=== PATIENT | male | born 1990 | race Caucasian/White ===

== ENCOUNTER → 2016-12-11 | Outpatient (CLI) | payer BC ==
[~2016-12-11] MED LIST: CEPH-583 PO; OXYC1TAB8 PO; [UNRECOGNIZED DRUG - CODE] TOP
[2016-12-11 17:12] LABS: BASOPHILS % (AUTO) 0.3 % (0-2); EOSINOPHILS # (AUTO) 0.1 T/MM3 (0-0.5); EOSINOPHILS % (AUTO) 2.1 % (0-4); HCT - HEMATOCRIT 44.3 % (41-53); HGB - HEMOGLOBIN 15.8 GM/DL (13.5-17.5); IMMATURE GRANULOCYTE # (AUTO) 0.02 T/MM3 (0.00-0.03); IMMATURE GRANULOCYTE % (AUTO) 0.3 % (0.0-0.5); LYMPHOCYTES % (AUTO) 32.2 % (23-45); MEAN CORPUSCULAR HGB CONC(MCHC 35.7 GM/DL (31-37); MEAN PLATELET VOLUME 10.2 UM3 (9.4-12.4); MONOCYTES # (AUTO) 0.4 T/MM3 (0-0.8); NEUTROPHILS #(AUTO)-ABSOLUTE 3.7 T/MM3 (1.8-7.7); NEUTROPHILS % (AUTO) 58.1 % (33-66); RED BLOOD COUNT 5.09 M/MM3 (4.50-5.90); WBC - WHITE BLOOD COUNT 6.3 T/MM3 (4.5-11.0)
== END ==
LOC: LAB 16:36
PROVIDERS: ATTEND Otolaryngology
DX: Z01.818 Encounter for other preprocedural examination (principal)
CPT/HCPCS: 36415; 85025

== ENCOUNTER 2016-12-15 06:42 | Day surgery (SDC) | payer BC ==
[~2016-12-15] VITALS: Ht 195.6 cm; Wt 103.7 kg
[2016-12-15] VITALS (16 sets, daily range): BP systolic 118–155; BP diastolic 83–95; PULSE 64–82; RESP 12–22; TEMP 97–97.9; O2SAT 95–100; Ht 195.6 cm; Wt 103.7 kg
[~2016-12-15 06:42] MED LIST changes: -CEPH-583 PO; -OXYC1TAB8 PO
--- OUTSIDE RECORDS SUMMARY | 2016-12-15 06:45 | XMS REPORT | Summary of Care ---
Author Author [facility] Organization [facility] Address [address] [place] [address] Phone Care Team Providers Care Couples Therapist Name Role Phone Erica Lucero M.D. 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 * Start 30-Sep-2016 Active 120 GM Can Allergies and Adverse Reactions Name Dates Details Penicillins (Allergy) Status: Active Procedures Procedure Dates Details History of Appendectomy History of Tonsillectomy Procedures not documented Immunization Name Dates Details Immunizations not documented Family History Name Dates Details Family history of diabetes mellitus (V18.0, Z83.3) Status: Active Name Dates Details Family history of hypertension (V17.49, Z82.49) Status: Active Family history of diabetes mellitus (V18.0, Z83.3) Status: Active Family history of sleep apnea (V19.8, Z82.0) Status: Active Name Dates Details Family history of sleep apnea (V19.8, Z82.0) Status: Active Social History Name Dates Details - Status: Name Dates Details Never smoker Vital Signs Date Test Result Details 28-Oct-2016 13:11 Temperature 98.6 f Status: Comments: Method: Heart Rate 87 /min Status: Comments: Location: ; Physical Findings 16 Status: Comments: Respiration Height 77 in Status: Weight 230 lb Status: Physical Findings 98 Status: Comments: O2 Saturation Body Mass Index Calculated 27.27 kg/m2 Status: Body Surface Area Calculated 2.37 m2 Status: Results Date Description Value Details Results not documented Plan of Care Name Dates Details Planned Observations Planned Goals not documented Instructions Name Dates Details Instructions not documented Encounters Appointment; Skip Carrasco M.D. Encounter Diagnosis: Problem not documented On 25-Nov-2016 11:30 Appointment; Skip Carrasco M.D. Encounter Diagnosis: Problem not documented On 28-Oct-2016 13:00 Appointment; Gregorio Lucero M.D. Encounter Diagnosis: Problem not documented On 29-Sep-2016 09:15
--- OUTSIDE RECORDS SUMMARY | 2016-12-15 06:46 | XMS REPORT | Summary of Care ---
Author Author Gregorio Lucero M.D. Organization Unknown Address Unknown Phone Unavailable Care Team Providers Care Research Biologist Name Role Phone Nic Orr, R Unavailable Unavailable Wedel, L Unavailable Unavailable Unavailable Unavailable Functional Status Name Dates Details Functional status health issues are not documented Status: Name Dates Details Cognitive status health issues are not documented Status: Problems Name Dates Details Seborrheic dermatitis (690.10, L21.9) Status: Active Medications Name Dates Details Enstilar 0.005-0.064 % External Foam APPLY AND GENTLY MASSAGE INTO AFFECTED AREA(S) ONCE DAILY Quantity: 1 Gregorio Lucero M.D. Start 29-Sep-2016 Active 60 GM Can Allergies and Adverse Reactions Name Dates Details Penicillins (Allergy) Status: Active Procedures Procedure Dates Details Procedures not documented Immunization Name Dates Details Immunizations not documented Social History Name Dates Details Unknown if ever smoked Vital Signs Date Test Result Details No Known Vitals to report Results Date Description Value Details Results not documented Plan of Care Name Dates Details Planned Observations Planned Goals not documented Instructions Name Dates Details Instructions not documented Encounters Appointment; Gregorio Lucero M.D. Encounter Diagnosis: Problem not documented On 29-Sep-2016 09:15
--- OUTSIDE RECORDS SUMMARY | 2016-12-15 06:46 | XMS REPORT | Summary of Care ---
Author Author Luna Orr, Skip Organization Unknown Address Unknown Phone Unavailable Care Team Providers Care Property Consultant Name Role Phone Skip Carrasco M.D. Unavailable Unavailable Erica Lucero M.D. 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
--- OUTSIDE RECORDS SUMMARY | 2016-12-15 06:46 | XMS REPORT | Summary of Care ---
Author Author [facility] Organization [facility] Address [address] [place] [address] Phone Care Team Providers Care Remote Recruiter Name Role Phone Shaggy Orr, User Unavailable Unavailable Erica Lucero M.D. 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) Status: Active Seborrheic dermatitis (690.10, L21.9) Status: Active Sleep disturbance (780.50, G47.9) Status: Active Deviated nasal septum (470, J34.2) Status: Active Allergic rhinitis (477.9, J30.9) Status: Active Medications Name Dates Details Sorilux 0.005 % External Foam APPLY TO AFFECTED AREAS ON SCALP AND BACK OF NECK BID DAILY Quantity: 1 Nic Orr, Gregorio Tobar Start 30-Sep-2016 Active 120 GM Can Allergies and Adverse Reactions Name Dates Details Penicillins (Allergy) Status: Active Procedures Procedure Dates Details History of Tonsillectomy History of Appendectomy Procedures not documented Immunization Name Dates Details Immunizations not documented Family History Name Dates Details Family history of diabetes mellitus (V18.0, Z83.3) Status: Active Name Dates Details Family history of diabetes mellitus (V18.0, Z83.3) Status: Active Family history of hypertension (V17.49, Z82.49) Status: Active Family history of sleep apnea [...] Details Planned Observations Planned Goals not documented Planned Encounters Appointment; Provider: Skip Carrasco M.D. On 25-Nov-2016 11:30 Instructions Name Dates Details Instructions not documented Encounters Appointment; Skip Carrasco M.D. Encounter Diagnosis: Problem not documented On 28-Oct-2016 13:00 Appointment; Gregorio Lucero M.D. Encounter Diagnosis: Problem not documented On 29-Sep-2016 09:15
--- OUTSIDE RECORDS SUMMARY | 2016-12-15 06:46 | XMS REPORT | Summary of Care ---
Author Author Luna Orr, Skip Organization Unknown Address Unknown Phone Unavailable Care Team Providers Care Financial Management Analyst Name Role Phone Skip Carrasco M.D. Unavailable [...]
--- OUTSIDE RECORDS SUMMARY | 2016-12-15 06:46 | XMS REPORT | Summary of Care ---
Author Author Luna Orr, Skip Organization Unknown Address Unknown Phone Unavailable Care Team Providers Care Wire Repairer Name Role Phone Skip Carrasco M.D. Unavailable [...]
--- OUTSIDE RECORDS SUMMARY | 2016-12-15 06:46 | XMS REPORT | Summary of Care ---
Author Author Gregorio Lucero M.D. Organization Unknown Address Unknown Phone Unavailable Care Team Providers Care Janitor Custodian Name Role Phone Nic Orr, R Unavailable [...] ONCE DAILY Quantity: 1 Gregorio Lucero M.D. * Start 29-Sep-2016 Active 60 GM Can Allergies [...] Details Planned Observations Planned Goals not documented Interventions Provided Medication Changes* Enstilar 0.005-0.064 % External Foam - Start Instructions Name Dates Details Instructions not documented Encounters Appointment; Gregorio Lucero M.D. Encounter Diagnosis: Problem not documented On 29-Sep-2016 09:15
[2016-12-15] MEDS ORDERED: OXYMETAZOLINE 0.05% NASAL SPRAY 15 ML EA NOSTRIL ONE (07:00)
[2016-12-15] MEDS ORDERED: LIDOCAINE 1% (10mg/ml) 2ml SDV INJ ONE (07:00)
[2016-12-15] MEDS ORDERED: LR 1,000 ML IV SCH (07:00)
--- NOTE | 2016-12-15 08:18 | ANESPREOP ---
Anesthesia Record Date and Time DATE: 12/15/16 TIME: 08:16 Pre-Op Diagnosis deviated septum Proposed Surgical Procedure SEPTOPLASTY/BILATERAL TURBINATE NPO since: [place] Allergies: Coded Allergies: Penicillins (Verified Allergy, Unknown, HIVES, 12/15/16) Ht/Wt/BMI Height: 6 ' 5.00 " Weight: 103.700 kg BMI: 27.1 kg/m2 Vital Signs Date Time Temp Pulse Resp B/P Pulse Ox O2 Delivery O2 Flow Rate FiO2 12/15/16 07:52 97.9 12/15/16 06:51 72 16 118/83 98 Room Air Medications Inpatient Medications Current Medications Medications (Trade) Dose Ordered Sig/Mady Start Time Stop Time Status Last Admin Dose Admin Lactated Ringer's (Lactated Ringers) 1,000 ml @ 30 mls/hr Q24H 12/15/16 07:00 12/15/16 07:30 30 MLS/HR Calcipotriene (Sorilux) 60 Gm Foam, 1 APPLIC TOP DAILY PRN for RASH, (Reported) Last Taken: on 12/11/16 Currently on Beta Juliette: No Medical/Surgical History Anesthesia PMH: Denies: Anesthesia Reactions (NO AIRWAY ISSUES), Cancer, Clotting Problems, Glaucoma, Malignant Hyperthermia, Sleep Apnea Smoking Status: Never smoker Use Chewing Tobacco?: No Second Hand Exposure: No Alcohol Intake: a few times a month Past Surgical History Orthopedic Surgeries: Abdominal Surgeries: Yes - APPY Genitourinary Surgeries: Cardiac Surgeries: Endocrine Surgeries: Reproductive Surgeries: Neurological Surgeries: Ear Surgeries: Nose Surgeries: Throat Surgeries: Yes - TONSILLECTOMY Other Surgeries: Anesthesia Adverse Reactions: FOUND none Family Hx of Anesthesia Advers: none Hx of Motion Sickness: No Pertinent Findings EKG Rhythm: Sinus Rhythm Physical Exam Respiratory: Bilat breath sounds equal, Lungs clear Cardiovascular: FOUND Regular rate, rhythm, FOUND No murmur Airway Assessment Mallampati Score: I TMD: 3 Fingerbreadths Neck Extension: Good Overall Assessment: No Airway Concerns ASA: 1 Plan Anesthesia Plan: GETA Discussion Discussed risks/options/alternatives of anesthesia and questions answered. Patient consents. Nursing pain assessment noted. Present: Spouse Attestation Statement Prior to the delivery of any anesthetic medication, I examined the patient, developed the plan, obtained the patient's consent and discussed the risk and benefits of the procedure with the patient/guardian. ALLYSON MULLINS CRNA Dec 15, 2016 08:18
[2016-12-15] MEDS ORDERED: LIDOCAINE 1%/EPI 1:100,000 20ml MDV ONE (08:23)
[2016-12-15] MEDS ORDERED: LIDOCAINE 2% (20mg/ml) 5ml PF SDV ONE (08:28)
[2016-12-15] MEDS ORDERED: FENTANYL 250mcg/5ml INJECTION ONE (08:28)
[2016-12-15] MEDS ORDERED: ROCURONIUM 50mg/5ml INJECTION IV ONE (08:28)
[2016-12-15] MEDS ORDERED: PROPOFOL 200mg 20 ML IV ONE (08:28)
[2016-12-15] MEDS ORDERED: SUGAMMADEX 200 MG/2 ML INJECTION IV ONE (09:21)
[2016-12-15] MEDS ORDERED: OXYC1TAB8 PO (09:30)
[2016-12-15] MEDS ORDERED: CEPH-583 PO (09:31)
--- NOTE | 2016-12-15 09:49 | ANESPO ---
Post-Op Note Date 12/15/16 Time: 09:49 Status Pt Participated in Evaluation: Pt participated in person Vital Signs Date Time Temp Pulse Resp B/P Pulse Ox O2 Delivery O2 Flow Rate FiO2 12/15/16 09:45 76 16 137/86 98 Room Air 12/15/16 09:31 97.7 Respiratory Function: Airway patent, Regular respirations Cardiovascular Function: Regular pulse Telemetry Pattern: SR Mental Status: Alert/oriented Pain Level Intensity: 2 Hydration: IV infusing Complications during Recovery None apparent Follow-Up Instructions Instructions Per Surgeon ALLYSON MULLINS CRNA Dec 15, 2016 09:49
[2016-12-15] MEDS: OXYCODONE/APAP 5mg/325mg TABLET PO PRN ×2 (10:15→10:53)
--- NOTE | 2016-12-15 15:46 | OPNOTEF ---
DATE OF SURGERY 12/15/2016 PREOPERATIVE DIAGNOSES Deviated septum, large inferior turbinates, nasal obstruction. POSTOPERATIVE DIAGNOSES Deviated septum, large inferior turbinates, nasal obstruction. SURGERY Septoplasty, inferior turbinate reduction. SURGEON Skip Carrasco MD ANESTHESIA General. FINDINGS Septum deviated due to a large cartilaginous and bony spur towards the right. There appeared to be some evidence of prior septoplasty with minimal cartilage in the mid septal area. Again, most of this obstruction was inferiorly along the maxillary crest. Turbinates were large. SPECIMENS None. INDICATIONS This is a 26-year-old male with history of nasal obstruction that has been ongoing. It is worse on the right than the left. He has been treated with aggressive medical management. There may have been a prior septoplasty but not entirely sure. The risks and benefits of revision surgery were discussed and informed consent was obtained. He presents today for scheduled surgery. DESCRIPTION OF OPERATION The patient was taken to the OR and anesthesia was induced. The nose was examined and the septum was deflected off of the crest in the inferior aspects. The turbinates were large. The nose was decongested with Afrin and 1% lidocaine with 1:100,000 epinephrine was injected laterally at the leone. A right-sided modified Renningers incision was made and the mucoperichondrial flap was elevated. The cartilage was then incised and the contralateral flap was also raised. The intervening obstructive cartilage was removed. More posteriorly bony fragments were also removed. More superiorly there did seem to be an absence of some cartilage consistent with prior septal surgery. Along the floor of the nose there was a large amount of obstructing cartilage and bone. This was removed with Rom forceps. This did seem to dramatically improve the nasal airway. The turbinates were then reduced using the Coblator at a setting of 4 and 2. This was done as a submucosal ablation. They were also outfractured. * * were placed. The incision was closed with 4-0 chromics. He was awakened and taken to the recovery room in stable condition. ARAMIS
== END 2016-12-15 11:25 | disposition home or self-care (01) ==
LOC: NSC 06:42
PROVIDERS: ATTEND Otolaryngology
DX: J34.2 Deviated nasal septum (principal); J34.3 Hypertrophy of nasal turbinates; J34.89 Other specified disorders of nose and nasal sinuses; Z88.0 Allergy status to penicillin
CPT/HCPCS: 30520; 30930; J2704; J3010; J7120